=== PATIENT | male | born 1940 | race Caucasian/White ===

== ENCOUNTER → 2019-01-20 | Outpatient (CLI) | payer MEDICARE | END | disposition home or self-care (01) | LOC: PLD 14:14 → LAB SHORT 14:14 | DX: L82.1 Other seborrheic keratosis (principal); D48.5 Neoplasm of uncertain behavior of skin | CPT/HCPCS: 88305 ==

== ENCOUNTER → 2020-12-12 | Outpatient (CLI) | payer MEDICARE | LOC: LAB 07:54 → LAB SHORT 07:54 | DX: R31.9 Hematuria, unspecified (principal) | CPT/HCPCS: 87077; 87086; 87186 ==